=== PATIENT | female | born 1955 | race African-American/Black ===

== ENCOUNTER → 2017-10-01 | Outpatient (CLI) | payer MEDICARE, OTHER ==
[2017-10-01] MEDS: BUPIVACAINE MPF 0.5% 10 ML VIAL for KCIC. IJ (11:42)
[2017-10-01] MEDS: LIDOCAINE 1% Multi-Dose 20 ML VIAL. ID (11:42)
[2017-10-01] MEDS: methylPREDNISolone ACETATE 40 MG/ML VIAL. INT ART (11:42)
[2017-10-01] MEDS: IOHEXOL 300 MG/ML 50 ML VIAL. INT ART (11:43)
== END | disposition home or self-care (01) ==
LOC: KCIC 10:31
DX: M25.552 Pain in left hip (principal); G89.29 Other chronic pain
CPT/HCPCS: 20610; 77002; J1030; Q9967